=== PATIENT | male | born 1965 | race Caucasian/White ===

== ENCOUNTER 2021-11-10 18:25 | Emergency (ER) | payer BC ==
[~2021-11-10] VITALS: Ht 177.8 cm; Wt 86.4 kg
[2021-11-10 19:26] VITALS: BP 121/78
== END 2021-11-10 19:30 | disposition home or self-care (01) ==
LOC: ER 18:26
DX: S61.011A Laceration without foreign body of right thumb without damage to nail, initial encounter (principal); W45.8XXA Other foreign body or object entering through skin, initial encounter; Y93.89 Activity, other specified; Y92.89 Other specified places as the place of occurrence of the external cause; Y99.8 Other external cause status; Z88.2 Allergy status to sulfonamides
CPT/HCPCS: 12001; 99282; A6449

== ENCOUNTER 2021-12-11 21:22 | Emergency (ER) | payer BC ==
[~2021-12-11] VITALS: Ht 177.8 cm; Wt 86.4 kg
[2021-12-11 21:31] VITALS: BP 128/99
[2021-12-12] MEDS ORDERED: CIPR-202 PO (18:41)
== END 2021-12-12 01:43 | disposition left against medical advice (07) ==
LOC: ER 21:23
DX: R10.31 Right lower quadrant pain (principal); Z53.21 Procedure and treatment not carried out due to patient leaving prior to being seen by health care provider

== ENCOUNTER 2021-12-12 11:43 | Emergency (ER) | payer BC ==
[~2021-12-12] VITALS: Ht 177.8 cm; Wt 88.6 kg
[2021-12-12 12:13] VITALS: BP 128/83
[2021-12-12 13:26] LABS: CLARITY,URINE CLEAR (Clear); GLUCOSE, URINE NEGATIVE (Neg); KETONES,URINE TRACE mg/dl (Neg); LEUKOCYTE ESTERASE ,URINE NEGATIVE (Neg); NITRITES, URINE NEGATIVE (Neg); OCCULT BLOOD,URINE TRACE-INTACT (Neg); PH,URINE 5.5 (4.8-8.0); PROTEIN,URINE TRACE mg/dl (Neg); UROBILINOGEN,URINE 0.2 E.U/dL (0.2-1.0)
[2021-12-12 13:46] LABS: COLOR,URINE YELLOW (Yellow); UA COLLECTION TYPE CLN CATCH MIDSTREAM
[2021-12-12 13:51] LABS: BACTERIA,URINE 1+ /HPF (Neg)
[2021-12-12 13:52] LABS: MUCUS STRANDS MODERATE /LPF (Neg); SQUAMOUS EPITHELIAL CELL,UR NONE SEEN /LPF (FEW)
[2021-12-12 13:58] LABS: WBC CLUMPS,URINE MODERATE /HPF (NEGATIVE)
[2021-12-12 13:59] LABS: CAL OXALATE CRYSTALS 1+ /HPF (NEGATIVE)
[2021-12-12 18:12] LABS: BASOPHILS % (AUTO) 0.6 % (0-1); EOSINOPHILS # (AUTO) 0.1 X10'3 (0-0.9); EOSINOPHILS % (AUTO) 1.2 % (0-6); HEMATOCRIT 43.4 % (42.0-52.0); HEMOGLOBIN 13.7 g/dl (14.0-17.9); LYMPHOCYTES # (AUTO) 1.7 X10'3 (1.1-4.8); LYMPHOCYTES % (AUTO) 37.5 % (21-51); MEAN CORPUSCULAR HEMOGLOBIN 22.7 PG (27.0-31.0); MEAN CORPUSCULAR HGB CONC 31.6 g/dL (33.0-36.5); MEAN PLATELET VOLUME 8.9 FL (7.4-10.4); MONOCYTES # (AUTO) 0.4 X10'3 (0-0.9); MONOCYTES % (AUTO) 9.4 % (2-12); NEUTROPHILS # (AUTO) 2.3 X10'3 (1.8-7.7); NEUTROPHILS % (AUTO) 51.3 % (42-75); PLATELET COUNT 203 X10'3 (140-440); RED BLOOD COUNT 6.02 X10'6 (4.70-6.10); RED CELL DISTRIBUTION WIDTH 14.5 % (11.5-14.5); WHITE BLOOD COUNT 4.5 X10'3 (4.5-11.0)
[2021-12-12 18:27] LABS: ALANINE AMINOTRANSFERASE 27 U/L (12-78); ALBUMIN/GLOBULIN RATIO 1.1 (1.1-1.5); ALKALINE PHOSPHATASE 83 IU/L (46-116); ANION GAP 7 (8-16); ASPARTATE AMINO TRANSFERASE 20 U/L (10-37); BILIRUBIN,TOTAL 0.3 MG/DL (0.1-1.0); BLOOD UREA NITROGEN 19 MG/DL (7-18); BUN/CREATININE RATIO 16.4 (5.4-32.0); CALCIUM 8.8 MG/DL (8.5-10.1); CHLORIDE 105 MMOL/L (99-107); CREATININE 1.16 MG/DL (0.60-1.10); GLUCOSE 89 MG/DL (70-104); SODIUM 142 MMOL/L (135-145); TOTAL CARBON DIOXIDE 30.5 MMOL/L (24-32); TOTAL PROTEIN 7.7 G/DL (6.4-8.2); eGFR 65 ML/MIN
[2021-12-12 18:31] LABS: POTASSIUM 4.3 MMOL/L (3.5-5.1)
[2021-12-12] MEDS ORDERED: ciprofloxacin 250mg tablet PO ONE (18:35)
[2021-12-12] MEDS ORDERED: CIPR-202 PO (18:41)
== END 2021-12-12 19:17 | disposition home or self-care (01) ==
LOC: ER 11:43
DX: N39.0 Urinary tract infection, site not specified (principal); Z88.0 Allergy status to penicillin; Z88.2 Allergy status to sulfonamides
CPT/HCPCS: 36415; 74176; 76770; 76870; 80053; 81001; 85025; 87088; 93976; 99284

== ENCOUNTER 2022-06-27 16:08 | Emergency (ER) | payer BC ==
[~2022-06-27] VITALS: Ht 175.3 cm; Wt 88.2 kg
[2022-06-27 16:14] VITALS: BP 163/88
== END 2022-06-27 18:59 | disposition home or self-care (01) ==
LOC: ER 16:09
DX: L98.9 Disorder of the skin and subcutaneous tissue, unspecified (principal); T43.625A Adverse effect of amphetamines, initial encounter; Z88.0 Allergy status to penicillin; Z88.2 Allergy status to sulfonamides; Y92.89 Other specified places as the place of occurrence of the external cause
CPT/HCPCS: 99281

== ENCOUNTER 2022-08-28 17:20 | Emergency (ER) | payer BC ==
[~2022-08-28] VITALS: Ht 175.3 cm; Wt 87.2 kg
[2022-08-28 18:53] LABS: COLOR,URINE YELLOW (Yellow); GLUCOSE, URINE NEGATIVE (Neg); KETONES,URINE NEGATIVE (Neg); LEUKOCYTE ESTERASE ,URINE NEGATIVE (Neg); NITRITES, URINE NEGATIVE (Neg); OCCULT BLOOD,URINE TRACE-INTACT (Neg); PROTEIN,URINE TRACE mg/dl (Neg)
[2022-08-28 18:56] LABS: CLARITY,URINE SLIGHTLY CLOUDY (Clear); UA COLLECTION TYPE CLN CATCH MIDSTREAM
[2022-08-28 19:08] LABS: HYALINE CASTS 0-3 /LPF (NEGATIVE); MUCUS STRANDS MODERATE /LPF (Neg)
[2022-08-28 19:09] LABS: BACTERIA,URINE FEW /HPF (Neg); CAL OXALATE CRYSTALS 4+ /HPF (NEGATIVE); RBC,URINE 0-2 /HPF (0-2); SQUAMOUS EPITHELIAL CELL,UR FEW /LPF (FEW); WBC,URINE 0-4 /HPF (0-4)
[2022-08-28 19:10] LABS: TRANSITIONAL EPI CELLS,URINE FEW /HPF
[2022-08-28 19:16] LABS: BASOPHILS % (AUTO) 0.8 % (0-1); EOSINOPHILS # (AUTO) 0.1 X10'3 (0-0.9); EOSINOPHILS % (AUTO) 2.8 % (0-6); HEMATOCRIT 43.1 % (42.0-52.0); HEMOGLOBIN 13.8 g/dl (14.0-17.9); LYMPHOCYTES % (AUTO) 42.6 % (21-51); MEAN CORPUSCULAR VOLUME 71.8 FL (78-98); MEAN PLATELET VOLUME 8.3 FL (7.4-10.4); MONOCYTES # (AUTO) 0.5 X10'3 (0-0.9); MONOCYTES % (AUTO) 9.7 % (2-12); NEUTROPHILS # (AUTO) 2.1 X10'3 (1.8-7.7); NEUTROPHILS % (AUTO) 44.1 % (42-75); PLATELET COUNT 244 X10'3 (140-440); RED BLOOD COUNT 6.01 X10'6 (4.70-6.10); RED CELL DISTRIBUTION WIDTH 14.2 % (11.5-14.5); WHITE BLOOD COUNT 4.7 X10'3 (4.5-11.0)
[2022-08-28 19:33] LABS: ALANINE AMINOTRANSFERASE 27 U/L (12-78); ALBUMIN/GLOBULIN RATIO 1.1 (1.1-1.5); ALKALINE PHOSPHATASE 99 IU/L (46-116); ANION GAP 7 (8-16); ASPARTATE AMINO TRANSFERASE 16 U/L (10-37); BILIRUBIN,TOTAL 0.3 MG/DL (0.1-1.0); BLOOD UREA NITROGEN 22 MG/DL (7-18); BUN/CREATININE RATIO 17.2 (10.0-20.0); CALCIUM 9.5 MG/DL (8.5-10.1); CHLORIDE 104 MMOL/L (99-107); CREATININE 1.28 MG/DL (0.60-1.10); GLUCOSE 94 MG/DL (70-104); LIPASE 172 U/L (73-393); POTASSIUM 4.5 MMOL/L (3.5-5.1); SODIUM 141 MMOL/L (135-145); TOTAL CARBON DIOXIDE 29.7 MMOL/L (24-32); TOTAL PROTEIN 7.7 G/DL (6.4-8.2); eGFR 58 ML/MIN
[2022-08-28] MEDS ORDERED: normal saline 1000ML IV soln IVB ONE (20:30)
[2022-08-28] MEDS ORDERED: sildenafil citrate 20mg tablet PO SCH (20:30)
[2022-08-28] MEDS ORDERED: sildenafil citrate 20mg tablet PO ONE (20:30)
[2022-08-28] MEDS ORDERED: ketorolac tromethamine 15mg/ml inj. IV ONE (20:30)
[2022-08-28] MEDS ORDERED: HYDR-3965 PO (22:22)
[2022-08-28] MEDS ORDERED: TADA5TAB2 PO (22:22)
[2022-08-28] MEDS ORDERED: NAPR-56 PO (22:22)
[2022-08-28 22:30] VITALS: BP 134/75
== END 2022-08-28 22:56 | disposition home or self-care (01) ==
LOC: ER 17:21
DX: N23 Unspecified renal colic (principal); Z88.0 Allergy status to penicillin; Z88.2 Allergy status to sulfonamides
CPT/HCPCS: 36415; 80053; 81001; 83690; 85025; 96361; 96374; 99285; J1885; J7030